=== PATIENT | male | born 1990 | race American Indian/Alaskan Native ===

== ENCOUNTER 2017-06-20 20:08 | Emergency (ER) | payer SELFPAY ==
[2017-06-20] MEDS ORDERED: TYLENOL PO ONE (21:01)
[2017-06-20 21:31] LABS: Basophils % (Auto) 0.1 % (0.0-1.8); Hematocrit 48.2 % (35.5-45.6); Hemoglobin 15.7 gm/dl (11.8-15.2); Mean Corpuscular HGB Conc 33 % (32-34); Mean Corpuscular Volume 79 fl (84-94); Platelet Count 137 K/mm3 (140-440); Red Cell Distribution Width 16.1 % (13.2-15.2); White Blood Count 16.4 K/mm3 (4.5-11.0)
[2017-06-20 21:32] LABS: Mean Corpuscular Hemoglobin 26 pg (28-32)
[2017-06-20] MEDS ORDERED: NACL 0.9% 1000 ML 1,000 ML IV ONE ×2 (21:38→23:27)
[2017-06-20] MEDS ORDERED: DECADRON IV ONE (21:39)
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
[2017-06-20] MEDS ORDERED: BICILLIN L-A IM ONE (21:46)
[2017-06-20] MEDS ORDERED: TORADOL IV ONE (21:46)
[2017-06-20 21:56] LABS: Alanine Aminotransferase 12 units/L (7-56); Albumin 4.3 g/dL (3.9-5); Albumin/Globulin Ratio 1.2 %; Alkaline Phosphatase 59 units/L (35-129); Anion Gap 22 mmol/L; Blood Urea Nitrogen 11 mg/dL (9-20); Calcium 9.1 mg/dL (8.4-10.2); Carbon Dioxide 21 mmol/L (22-30); Glucose 105 mg/dL (75-100); Potassium 3.7 mmol/L (3.6-5.0); Sodium 132 mmol/L (137-145); Total Protein 7.9 g/dL (6.3-8.2)
[2017-06-20 23:33] LABS: Urine Drugs of Abuse Note Disclamer
[2017-06-20 23:47] LABS: Bilirubin,Urine NEG (Negative); Blood,Urine NEG (Negative); Ketones,Urine 20 mg/dL (Negative); Leukocyte Esterase,Urine NEG (Negative); Mucus,Urine 3+ /HPF; Nitrite,Urine NEG (Negative)
[2017-06-21 01:18] VITALS: BP 102/66
== END 2017-06-21 01:22 | disposition home or self-care (01) ==
LOC: ED 20:08
DX: J03.90 Acute tonsillitis, unspecified (principal); J45.909 Unspecified asthma, uncomplicated; F17.200 Nicotine dependence, unspecified, uncomplicated
CPT/HCPCS: 36415; 80053; 80307; 81001; 82550; 85025; 87116; 87430; 96361; 96372; 96374; 96375; 99283; J0561; J1100; J1885; J7030